=== PATIENT | female | born 1965 | race Hispanic/Latino ===

== ENCOUNTER 2023-05-18 14:20 | Outpatient (CLI) | payer OTHER | END 2023-05-18 14:21 | disposition home or self-care (01) | LOC: NAV RAD 14:20 | PROVIDERS: ATTEND Family Medicine | DX: M47.812 Spondylosis without myelopathy or radiculopathy, cervical region (principal); M47.816 Spondylosis without myelopathy or radiculopathy, lumbar region; M50.30 Other cervical disc degeneration, unspecified cervical region; M46.02 Spinal enthesopathy, cervical region | CPT/HCPCS: 72040; 72100 ==